=== PATIENT | male | born 1960 | race Caucasian/White ===

== ENCOUNTER 2024-02-24 15:18 | Emergency (ER) | payer MEDICARE, OTHER ==
[~2024-02-24] VITALS: Ht 188 cm; Wt 93.1 kg
[2024-02-24] MEDS: LIDOcaine 1% 30ml preserv. free vial SQ STA (15:40)
[2024-02-24] MEDS ORDERED: SULF1TAB45 PO (15:45)
[2024-02-24] MEDS: bacitracin 15gm ointment TP STA (15:56)
[2024-02-24] MEDS: sulfamethoxazole/trimethoprim DS (800/160mg) tablet PO STA (15:56)
[2024-02-24 16:06] VITALS: BP 140/79; PULSE 72; RESP 18; TEMP 98.4; O2SAT 99
== END 2024-02-24 16:07 | disposition home or self-care (01) ==
LOC: ER 15:19
DX: M79.89 Other specified soft tissue disorders (principal); M79.674 Pain in right toe(s); Z79.899 Other long term (current) drug therapy
CPT/HCPCS: 99283; A6402; Z7610; A6449